=== PATIENT | male | born 1935 | race African-American/Black ===

== ENCOUNTER 2016-07-27 17:34 | Emergency (ER) | payer BC, MEDICARE ==
[2016-07-27] MEDS ORDERED: EPINEPHrine INJ 0.1 MG/ML 10 ML SYG ONE ×2 (17:42→18:03)
[2016-07-27] MEDS ORDERED: ATROPINE 1 MG/10 ML SYG IV ONE (18:06)
[2016-07-27] MEDS ORDERED: DEXTROSE 5% 250ML 250 ML ONE (18:34)
[2016-07-27] MEDS ORDERED: ATROPINE SULFATE 0.5 MG/5 ML SYRINGE IV ONE (18:40)
[2016-07-27] MEDS ORDERED: EPINEPHrine INJ 0.1 MG/ML 10 ML SYG IV ONE ×2 (18:40→19:00)
--- NOTE | 2016-07-27 18:56 | RAD ---
EXAM: Chest,1 View CLINICAL INDICATION: 81-year-old male with bradycardia. TECHNIQUE: Single view, AP portable chest was obtained. COMPARISON: 03/13/2015. 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 Overall widened, however stable superior mediastinum. If there is clinical concern for mediastinal vascular pathology, CTA chest is recommended. Interval development of interstitial and airspace opacification on the RIGHT greater than LEFT finding which may represent edema, hemorrhage or infectious process cannot be excluded. ARDS may be considered in the differential. No gross pneumothoraces. Endotracheal tube terminates approximately 7.9 cm above the level of the liliya at the level of the thoracic inlet. The visualized bones reveal degenerative change. Elevation of the RIGHT hemidiaphragm. Slight blunting of the bilateral costophrenic angles suspected small pleural effusion. Gaseous distention of upper abdominal bowel loops. IMPRESSION: 1. 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 If there is clinical concern for mediastinal vascular pathology, CTA chest is recommended. 2. Interstitial and airspace opacification of the RIGHT greater than LEFT hemithorax suggesting edema, hemorrhage or infectious process. ARDS may be considered in the differential. 3. Interval placement of endotracheal tube terminating approximately 7.9 cm above the level of the liliya at the level of the thoracic inlet. 4. Suspected trace bilateral pleural effusion. Electronically signed by: Mary Chavez MD 07/27/2016 6:55 PM CDT Workstation: [id number]
[2016-07-27] MEDS ORDERED: EPINEPHrine HCL MULTI-DOSE 5 MG in DEXTROSE 5% 250ML 250 ML IV SCH (19:00)
--- NOTE | 2016-07-27 19:29 | ED.PDOC ---
History of Present Illness - General Chief Complaint: Cardiovascular Problem Stated Complaint: decreased LOC,bradycardia Time Seen by Provider: 07/27/16 17:45 Source: EMS notes reviewed, intermediate records Exam Limitations: clinical condition - History of Present Illness Initial Comments: Patient presents from [facility] with bradycardia. Patient is permanently intubated. According to reports from EMS, a tech thought that the patient was unresponsive and tried a few chest compressions. Pulses were difficult to palpate so EMS was called. EMS noted HR in the 30-40s so the patient received atropine 0.5 mg IV x one. Patient presents unresponsive. No other history is available. Timing/Duration: unsure Severity: severe Improving Factors: nothing Worsening Factors: nothing Associated Symptoms: denies symptoms Allergies/Adverse Reactions: Allergies Benzodiazepines Allergy (Verified 12/10/14 19:57) Lorazepam Allergy (Verified 12/10/14 15:16) Home Medications: Ambulatory Orders Acetaminophen [Tylenol] 650 mg PEG Q6H PRN 03/13/15 Ascorbic Acid [Vitamin C] 500 mg PEG BID 03/13/15 Citalopram Hydrobromide [Celexa] 40 mg PEG DAILY 03/13/15 Cyanocobalamin [Vitamin B12] 1,000 mcg PEG DAILY 03/13/15 Doxazosin Mesylate [Doxazosin] 4 mg PEG BEDTIME 03/13/15 Ferrous Sulfate [Ferosul] 7.5 ml PEG DAILY 03/13/15 Folic Acid 1 mg PEG DAILY 03/13/15 Metoprolol Tartrate [Lopressor] 200 mg PO DAILY 03/13/15 Multiple Vitamins W/ Minerals [Multivitamin Adults] 1 tab PEG DAILY 03/13/15 Nutritional Supplements [Vinny] 1 pow PEG DAILY 03/13/15 Phenytoin Chewable Tab [Dilantin Chewable Tab] 200 mg PEG BID 03/13/15 QUEtiapine FUMARATE [SEROquel] 37.5 mg PEG BEDTIME 03/13/15 Simethicone [Gas-X] 160 mg PEG BID 03/13/15 Simvastatin [Zocor] 20 mg PEG BEDTIME 03/13/15 Tramadol HCl [Ultram] 50 mg PEG Q6H PRN 03/13/15 Valproic Acid Syrup [Depakene Syrup] 10 ml PEG DAILY 03/13/15 raNITIdine HCL [Zantac] 150 mg PEG DAILY 03/13/15 Review of Systems - Review of Systems Unable to Obtain Due To: condition, intubated, clinical condition Past Medical History (General) - Patient Medical History Hx Seizures: Yes Hx Stroke: Yes Hx Congestive Heart Failure: No Hx Hypertension: Yes Hx Diabetes: No - Vaccination History Hx Tetanus, Diphtheria Vaccination: - unknown Hx Influenza Vaccination: - UNKNOWN Hx Pneumococcal Vaccination: - UNKNOWN - Social History Hx Tobacco Use: - unknown - Activities of Daily Living Long Term/Assisted Living (if applicable):: [facility] Family Medical History - Family History Father Family History: Unknown Living Status: Physical Exam - Physical Exam General Appearance: Other - GCS 6. Withdraws to pain Ears, Nose, Throat: other - intubated Respiratory: other - distant breath sounds Cardiovascular/Chest: bradycardia, other - weak peripheral pulses but they are palpable Gastrointestinal/Abdominal: normal bowel sounds, non tender, soft Extremity: normal inspection Neurologic: other - GCS 6 Skin Exam: normal color Progress - Progress Progress: 07/27/16 19:32 Atropine 1 mg IV x one and Epinephrine 1 mg IV x one both given without significant increase in heart rate. EKG showed atrial fibrillation with HR of 55. Transcutaneous pacing attempted but we were unable to capture after several attempts. An epinephrine drip was started and titrated to 10 mcg/min. BP was at that point 155/80 and heart rate was 57. Lactic acid 3.9. CK MB Etiology of the patient's shock is unknown. His rectal temperature 90.4. He was started on a bolus of warmed saline and covered with a warm blanket. wbc wnl. Patient transferred to [facility]. Laboratory Tests 07/27/16 07/27/16 07/27/16 18:10 18:10 18:10 WBC 9.4 RBC 3.24 L Hgb 9.4 L Hct 29.3 L MCV 90.4 MCH 29.0 MCHC 32.0 L RDW 15.6 H Plt Count 80 L MPV 10.4 Absolute Neuts (auto) Not Reportable Absolute Lymphs (auto) Not Reportable Absolute Monos (auto) Not Reportable Absolute Eos (auto) Not Reportable Neutrophils % Not Reportable Neutrophils % (Manual) 71.0 Lymphocytes % Not Reportable Lymphocytes % (Manual) 15.0 Monocytes % Not Reportable Monocytes % (Manual) 8.0 Eosinophils % Not Reportable Basophils % Not Reportable Band Neutrophils 6.0 Platelet Estimate Decreased Normal RBC Morphology Normal rbc morph PT INR PTT (SP) Sodium 131 L Potassium 3.9 Chloride 91 L Carbon Dioxide 26 Anion Gap 17.9 BUN 105 H* Creatinine 1.34 H BUN/Creatinine Ratio 78.4 H Random Glucose 147 H Serum Osmolality 298.0 H Lactic Acid Calcium 9.6 Total Bilirubin 0.4 AST 36 ALT 29 Alkaline Phosphatase 244 H Creatine Kinase 89 CK-MB (CK-2) 26.1 H* CK-MB (CK-2) % Not Reportable Troponin I < 0.02 B-Natriuretic Peptide 479.0 H* Serum Total Protein 7.7 Albumin 3.0 L Globulin 4.7 H Albumin/Globulin Ratio 0.6 L 07/27/16 07/27/16 18:10 18:10 WBC RBC Hgb Hct MCV MCH MCHC RDW Plt Count MPV Absolute Neuts (auto) Absolute Lymphs (auto) Absolute Monos (auto) Absolute Eos (auto) Neutrophils % Neutrophils % (Manual) Lymphocytes % Lymphocytes % (Manual) Monocytes % Monocytes % (Manual) Eosinophils % Basophils % Band Neutrophils Platelet Estimate Normal RBC Morphology PT 14.1 H INR 1.250 PTT (SP) 71.8 H* Sodium Potassium Chloride Carbon Dioxide Anion Gap BUN Creatinine BUN/Creatinine Ratio Random Glucose Serum Osmolality Lactic Acid 3.9 H* Calcium Total Bilirubin AST ALT Alkaline Phosphatase Creatine Kinase CK-MB (CK-2) CK-MB (CK-2) % Troponin I B-Natriuretic Peptide Serum Total Protein Albumin Globulin Albumin/Globulin Ratio Departure - Departure Clinical Impression: Shock, Hypothermia, Bradycardia, Hypotension Disposition: Transfer to Hospital Condition: Serious Departure Forms: ED Discharge - Pt. Copy, Patient Portal Self Enrollment Diet: other - NPO Activity: other - as per hospitalist Referrals: HUMBERTO ARELLANO [Primary Care Provider] - 1-2 Weeks Home Medications: Ambulatory Orders Acetaminophen [Tylenol] 650 mg PEG Q6H PRN 03/13/15 Ascorbic Acid [Vitamin C] 500 mg PEG BID 03/13/15 Citalopram Hydrobromide [Celexa] 40 mg PEG DAILY 03/13/15 Cyanocobalamin [Vitamin B12] 1,000 mcg PEG DAILY 03/13/15 Doxazosin Mesylate [Doxazosin] 4 mg PEG BEDTIME 03/13/15 Ferrous Sulfate [Ferosul] 7.5 ml PEG DAILY 03/13/15 Folic Acid 1 mg PEG DAILY 03/13/15 Metoprolol Tartrate [Lopressor] 200 mg PO DAILY 03/13/15 Multiple Vitamins W/ Minerals [Multivitamin Adults] 1 tab PEG DAILY 03/13/15 Nutritional Supplements [Vinny] 1 pow PEG DAILY 03/13/15 Phenytoin Chewable Tab [Dilantin Chewable Tab] 200 mg PEG BID 03/13/15 QUEtiapine FUMARATE [SEROquel] 37.5 mg PEG BEDTIME 03/13/15 Simethicone [Gas-X] 160 mg PEG BID 03/13/15 Simvastatin [Zocor] 20 mg PEG BEDTIME 03/13/15 Tramadol HCl [Ultram] 50 mg PEG Q6H PRN 03/13/15 Valproic Acid Syrup [Depakene Syrup] 10 ml PEG DAILY 03/13/15 raNITIdine HCL [Zantac] 150 mg PEG DAILY 03/13/15
[2016-07-27 19:55] VITALS: O2SAT 99
[2016-07-27 19:56] VITALS: BP 175/87; TEMP 89.5
[2016-07-27] MEDS ORDERED: SODIUM CHLORIDE 0.9% 1000ML 1,000 ML ONE (20:06)
== END 2016-07-27 20:10 | disposition short-term general hospital (02) ==
LOC: ER 17:34
DX: R57.9 Shock, unspecified (principal); T68.XXXA Hypothermia, initial encounter; I95.9 Hypotension, unspecified; R56.9 Unspecified convulsions; I10 Essential (primary) hypertension; Z88.8 Allergy status to other drugs, medicaments and biological substances; Z86.73 Personal history of transient ischemic attack (TIA), and cerebral infarction without residual deficits; X58.XXXA Exposure to other specified factors, initial encounter; Y92.129 Unspecified place in nursing home as the place of occurrence of the external cause
CPT/HCPCS: 36415; 71010; 80053; 82550; 82553; 83605; 83880; 84484; 85025; 85610; 85730; 93005; 94002; 94003; 94770; 96374; 96375; 99285; J7030; J7060

== ENCOUNTER 2016-08-06 13:52 | Emergency (ER) | payer MEDICARE ==
[2016-08-06] MEDS ORDERED: IPRATROPIUM/ALBUTEROL 3 ML VIAL NEB ONE ×2 (14:01→14:02)
[2016-08-06] MEDS ORDERED: NEOMYCIN-BACITRACIN-POLYMYXIN 0.9 GM UD TOP ONE ×2 (14:14→14:15)
--- NOTE | 2016-08-06 14:34 | RAD ---
EXAM DESCRIPTION: Abdomen Series CLINICAL HISTORY: intermittent hypoxia, abd distention COMPARISON: None. FINDINGS: AP supine and upright views of the abdomen show a air-filled mildly dilated loops of small bowel and colon throughout the abdomen. No significant air-fluid levels are seen. No free intraperitoneal air is identified. Surgical skin staple projecting over the right upper quadrant of the abdomen is noted. Single AP portable upright view of the chest shows enlargement of the cardiomediastinal silhouette. There is increased prominence of the pulmonary vascularity compared to previous exam. There remains elevation of the right hemidiaphragm. There is blunting of both costophrenic angles. Tracheostomy tube is seen in place. A right IJ triple lumen central line is seen in place and extends into the left innominate vein with tip overlying the medial aspect of the left clavicle. IMPRESSION: Air-filled mildly dilated loops of bowel throughout the abdomen are more suggestive of ileus rather than partial distal small bowel obstruction. Findings in the chest suggest congestive heart failure with diffuse pulmonary edema and right greater than left pleural effusions. Right IJ triple lumen central line is seen with catheter and tip extending into the expected location of the left innominate vein. Tracheostomy tube is seen in place. Electronically signed by: Bennett Leong MD 08/06/2016 2:33 PM CDT
[2016-08-06] MEDS ORDERED: FUROSEMIDE INJ 40 MG/4 ML VIAL IV ONE (14:49)
[2016-08-06] MEDS ORDERED: POTASSIUM CHLORIDE ELIXIR 20 MEQ/15 ML UD GT ONE (14:58)
[2016-08-06] MEDS ORDERED: MAGNESIUM SULFATE PREMIX 2GM 2 GM in PREMIX BAG 1 BAG IVPB ONE (14:58)
--- NOTE | 2016-08-06 15:52 | ED.PDOC ---
History of Present Illness - General Chief Complaint: Respiratory Problem Time Seen by Provider: 08/06/16 14:00 Source: EMS notes reviewed, correction records Exam Limitations: clinical condition - History of Present Illness Initial Comments: the patientis an 81-year-old -Citizen Of [place] male presenting to the emergency room from a long-term care facility secondary to difficulty with oxygenation. The patient was released from [facility] 6 days ago after being treated for pneumonia and MRSA sepsis. The patient is undergoing IV vancomycin therapy once a day. He had been doing well up until late last night and early this morning when his oxygen saturation started decreasing. He has had significant edema to all of his extremities since his hospital stay. Due to the sepsis and hypothermia he had required a significant amount of IV fluids. The patient has large blisters to the dorsal aspect of his left hand and both feet. The patient also has some sacral breakdown and some scrotal breakdown. Abdomen is moderately distended but decompresses nicely when unplugging the G- tube. unlike his last visit, the patient is alert and awake and fairly interactive. He does appear a little short of breath and is mainly only truly uncomfortable when we suctioned him. The patient's baseline FiO2 is normally around 30%. It is requiring at least 60% to keep his oxygen saturationsadequate here. The patient has decreased breath sounds to bilateral lung basesand scattered rales throughout. Mild wheezes initially but these do clear somewhat with the breathing treatment. The patient was initially found to be mildly hypothermic with a rectal temperature rechecked at 93.8. no hypotension. No tachycardia. No real respiratory distress once he is oxygenating better. No report of fever from the facility. the patient does have significant edema to primarily the uppers extremities but also some to the lower extremities. He has an IJcentral lineplaced on the right. Tracheostomy is in place as is the G-tube. 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 He does always have an elevated d-dimer and BUN. Timing/Duration: 24 hours Severity: moderate Improving Factors: other - suctioning Worsening Factors: nothing Associated Symptoms: cough Allergies/Adverse Reactions: Allergies Benzodiazepines Allergy (Verified 12/10/14 19:57) Lorazepam Allergy (Verified 12/10/14 15:16) Home Medications: Ambulatory Orders Acetaminophen [Tylenol] 650 mg PEG Q6H PRN 03/13/15 Ascorbic Acid [Vitamin C] 500 mg PEG BID 03/13/15 Citalopram Hydrobromide [Celexa] 40 mg PEG DAILY 03/13/15 Cyanocobalamin [Vitamin B12] 1,000 mcg PEG DAILY 03/13/15 Doxazosin Mesylate [Doxazosin] 4 mg PEG BEDTIME 03/13/15 Ferrous Sulfate [Ferosul] 7.5 ml PEG DAILY 03/13/15 Folic Acid 1 mg PEG DAILY 03/13/15 Metoprolol Tartrate [Lopressor] 200 mg PO DAILY 03/13/15 Multiple Vitamins W/ Minerals [Multivitamin Adults] 1 tab PEG DAILY 03/13/15 Nutritional Supplements [Vinny] 1 pow PEG DAILY 03/13/15 Phenytoin Chewable Tab [Dilantin Chewable Tab] 200 mg PEG BID 03/13/15 QUEtiapine FUMARATE [SEROquel] 37.5 mg PEG BEDTIME 03/13/15 Simethicone [Gas-X] 160 mg PEG BID 03/13/15 Simvastatin [Zocor] 20 mg PEG BEDTIME 03/13/15 Tramadol HCl [Ultram] 50 mg PEG Q6H PRN 03/13/15 Valproic Acid Syrup [Depakene Syrup] 10 ml PEG DAILY 03/13/15 raNITIdine HCL [Zantac] 150 mg PEG DAILY 03/13/15 Review of Systems - Review of Systems Review of Systems: 08/06/16 19:27 Limited due to patient's difficulty with communication. Review of systems is fornew symptoms compared to baseline. Constitutional: States: malaise EENTM: States: no symptoms reported Respiratory: States: cough, short of breath, wheezing Cardiology: States: edema Gastrointestinal/Abdominal: States: other - bloating Genitourinary: States: no symptoms reported Musculoskeletal: States: other - chronic changes only Skin: States: see HPI Neurological: States: other - chronic changes only Endocrine: States: no symptoms reported All other Systems: No Change from Baseline Past Medical History (General) - Patient Medical History Hx Seizures: Yes Hx Stroke: Yes Hx Congestive Heart Failure: No Hx Hypertension: Yes Hx Diabetes: No - Vaccination History Hx Tetanus, Diphtheria Vaccination: - unknown Hx Influenza Vaccination: - UNKNOWN Hx Pneumococcal Vaccination: - UNKNOWN - Social History Hx Tobacco Use: - unknown Family Medical History - Family History Father Family History: Unknown Living Status: Physical Exam - Physical Exam General Appearance: Alert, Anxious, No apparent distress Eye Exam: bilateral normal Ears, Nose, Throat: hearing grossly normal, normal ENT inspection, normal pharynx - poor dentition Neck: non-tender, full range of motion - tracheostomy is in place as is the right sided IJ Respiratory: chest non-tender, no accessory muscle use, decreased breath sounds , crackles, rales, wheezing Cardiovascular/Chest: normal peripheral pulses, regular rate, rhythm Peripheral Pulses: radial,right: 2+, radial,left: 2+, dorsalis pedis,right: 2+, dorsalis pedis,left: 2+ Gastrointestinal/Abdominal: non tender, soft - abdomen is distended and tympanic. G-tube is in place. Rectal Exam: other - significant sacral decubitus breakdownalong with some breakdown around the scrotum. Back Exam: no CVA tenderness Extremity: non-tender, normal capillary refill - no evidence of tenderness to palpation of the extremities. , other - the patient has minimal movement of his upper extremities. Almost no movement of the lower extremities. He does have +2 edema to bilateral upper extremities. Neurologic: alert, normal mood/affect - according to the respiratory therapist that knows him Skin Exam: normal color - with the exception of the edema and the blisters that are formed on the dorsal aspects of both feet and the left hand Comments: Vital Signs - 24 hr 08/06/16 08/06/16 08/06/16 13:52 14:10 14:55 Temperature 94.1 F L 94.1 F L Pulse Rate 99 H Pulse Rate [ 100 H 91 H Radial] Respiratory 12 12 12 Rate Respiratory 12 Rate [Volume Control Data] Blood Pressure 143/86 152/74 [Right Arm] O2 Sat by Pulse 95 98 92 L Oximetry 08/06/16 08/06/16 08/06/16 15:42 15:52 16:28 Temperature 94.1 F L 95.8 F L Pulse Rate 99 H Pulse Rate [ 91 H 96 H Radial] Respiratory 12 12 Rate Respiratory 12 Rate [Volume Control Data] Blood Pressure 150/77 166/90 [Right Arm] O2 Sat by Pulse 90 L 98 Oximetry 08/06/16 08/06/16 17:45 18:50 Temperature 95.3 F L 96.2 F L Pulse Rate 99 H Pulse Rate [ 99 H 109 H Radial] Respiratory 12 12 Rate Respiratory Rate [Volume Control Data] Blood Pressure 148/72 181/93 [Right Arm] O2 Sat by Pulse 94 L 100 Oximetry note that the higher blood pressures above tend to be around times that we have suctioned him Progress - Progress Progress: 08/06/16 19:34 the patient is an 81-year-old -Citizen Of [place] male with what appears to be a worsening ventilator associated pneumonia and a CHF exacerbation. He is continuing to receive his vancomycin as appropriate based on cultures from 10 days ago. We are adding meropenem here today. Blood culture has been performed. Additionally the patient appears to have a CHF component to this hypoxia. arterial blood gas correlates well to his pulse oximetry. He has diuresed approximately 1.3 L since arrival after a dose of Lasix here. He does have a mildly elevated blood urea nitrogen level, this however is a chronic finding. The patient is guaiac positive on his stool. He does have some anemia. Hemoglobin levels are consistent with his discharge levels from [facility] one week ago. the patient was moderately hypothermic on arrival. The patient has been warmed externally with his temperature coming up to 96.2 rectally. the patient is being transferred for continued care of above problems. I then informed that the facility that he comes from is unable to run a ventilator patient for any period of time on an FiO2 greater than 40%. He is currently requiring 60% to maintain adequate oxygenation. - Results/Orders Results/Orders: Laboratory Tests 08/06/16 08/06/16 08/06/16 14:20 14:20 14:20 WBC 11.2 H RBC 3.01 L Hgb 8.3 L Hct 25.9 L MCV 85.9 MCH 27.5 MCHC 32.1 L RDW 17.6 H Plt Count 124 L MPV 8.0 Absolute Neuts (auto) 9.10 H Absolute Lymphs (auto) 0.70 L Absolute Monos (auto) 1.10 H Absolute Eos (auto) 0.10 Absolute Basos (auto) 0.10 Neutrophils % 81.4 H Lymphocytes % 6.6 L Monocytes % 10.2 H Eosinophils % 1.2 Basophils % 0.6 PT 15.2 H INR 1.350 PTT (SP) 50.5 H D-Dimer, Quantitative 636 H* pCO2 pO2 HCO3 ABG pH ABG O2 Saturation ABG Base Excess ABG Deoxyhemoglobin Oxyhemoglobin % Carboxyhemoglobin % Methemoglobin % Sat Calc Total Hemoglobin Sodium 144 Potassium 2.9 L Chloride 106 Carbon Dioxide 32 H Anion Gap 8.9 L BUN 45 H Creatinine 0.88 BUN/Creatinine Ratio 51.1 H POC Glucose Random Glucose 157 H Serum Osmolality 301.6 H Lactic Acid Calcium 8.9 Magnesium 1.6 L Total Bilirubin 0.5 AST 38 ALT 30 Alkaline Phosphatase 329 H Creatine Kinase 48 CK-MB (CK-2) 10.6 H* CK-MB (CK-2) % 22.08 H Troponin I 0.02 B-Natriuretic Peptide 764.0 H* Serum Total Protein 7.3 Albumin 2.4 L Globulin 4.9 H Albumin/Globulin Ratio 0.5 L Urine Color Urine Appearance Urine pH Ur Specific [place] Urine Protein Urine Glucose (UA) Urine Ketones Urine Blood Urine Nitrite Urine Bilirubin Urine Urobilinogen Ur Leukocyte Esterase Urine RBC Urine WBC Ur Epithelial Cells Amorphous Sediment Urine Bacteria Stool Occult Blood Vancomycin Trough Phenytoin Valproic Acid 08/06/16 08/06/16 08/06/16 14:20 15:15 15:22 WBC RBC Hgb Hct MCV MCH MCHC RDW Plt Count MPV Absolute Neuts (auto) Absolute Lymphs (auto) Absolute Monos (auto) Absolute Eos (auto) Absolute Basos (auto) Neutrophils % Lymphocytes % Monocytes % Eosinophils % Basophils % PT INR PTT (SP) D-Dimer, Quantitative pCO2 49 H pO2 48 L* HCO3 31.7 ABG pH 7.430 ABG O2 Saturation 83.1 L ABG Base Excess 7.0 ABG Deoxyhemoglobin 16.5 H Oxyhemoglobin % 80.9 L Carboxyhemoglobin % 1.5 Methemoglobin % Sat 1.2 Calc Total Hemoglobin 7.9 L Sodium Potassium Chloride Carbon Dioxide Anion Gap BUN Creatinine BUN/Creatinine Ratio POC Glucose Random Glucose Serum Osmolality Lactic Acid Calcium Magnesium Total Bilirubin AST ALT Alkaline Phosphatase Creatine Kinase CK-MB (CK-2) CK-MB (CK-2) % Troponin I B-Natriuretic Peptide Serum Total Protein Albumin Globulin Albumin/Globulin Ratio Urine Color Urine Appearance Urine pH Ur Specific [place] Urine Protein Urine Glucose (UA) Urine Ketones Urine Blood Urine Nitrite Urine Bilirubin Urine Urobilinogen Ur Leukocyte Esterase Urine RBC Urine WBC Ur Epithelial Cells Amorphous Sediment Urine Bacteria Stool Occult Blood Positive Vancomycin Trough Phenytoin 15.7 Valproic Acid < 0.1 L 08/06/16 08/06/16 08/06/16 16:00 18:16 18:25 WBC RBC Hgb Hct MCV MCH MCHC RDW Plt Count MPV Absolute Neuts (auto) Absolute Lymphs (auto) Absolute Monos (auto) Absolute Eos (auto) Absolute Basos (auto) Neutrophils % Lymphocytes % Monocytes % Eosinophils % Basophils % PT INR PTT (SP) D-Dimer, Quantitative pCO2 pO2 HCO3 ABG pH ABG O2 Saturation ABG Base Excess ABG Deoxyhemoglobin Oxyhemoglobin % Carboxyhemoglobin % Methemoglobin % Sat Calc Total Hemoglobin Sodium Potassium Chloride Carbon Dioxide Anion Gap BUN Creatinine BUN/Creatinine Ratio POC Glucose 116 H Random Glucose Serum Osmolality Lactic Acid Calcium Magnesium Total Bilirubin AST ALT Alkaline Phosphatase Creatine Kinase 56 CK-MB (CK-2) 10.8 H* CK-MB (CK-2) % 19.29 H Troponin I 0.03 B-Natriuretic Peptide Serum Total Protein Albumin Globulin Albumin/Globulin Ratio Urine Color Yellow Urine Appearance Clear Urine pH 5.0 Ur Specific [place] 1.010 Urine Protein Trace Urine Glucose (UA) Negative Urine Ketones Negative Urine Blood Small H Urine Nitrite Negative Urine Bilirubin Negative Urine Urobilinogen 0.2 Ur Leukocyte Esterase Negative Urine RBC 0-1 Urine WBC 0-1 Ur Epithelial Cells 0-1 Amorphous Sediment 2+ Urine Bacteria 0 Stool Occult Blood Vancomycin Trough Phenytoin Valproic Acid 08/06/16 08/06/16 18:25 18:25 WBC RBC Hgb Hct MCV MCH MCHC RDW Plt Count MPV Absolute Neuts (auto) Absolute Lymphs (auto) Absolute Monos (auto) Absolute Eos (auto) Absolute Basos (auto) Neutrophils % Lymphocytes % Monocytes % Eosinophils % Basophils % PT INR PTT (SP) D-Dimer, Quantitative pCO2 pO2 HCO3 ABG pH ABG O2 Saturation ABG Base Excess ABG Deoxyhemoglobin Oxyhemoglobin % Carboxyhemoglobin % Methemoglobin % Sat Calc Total Hemoglobin Sodium Potassium Chloride Carbon Dioxide Anion Gap BUN Creatinine BUN/Creatinine Ratio POC Glucose Random Glucose Serum Osmolality Lactic Acid 0.8 Calcium Magnesium Total Bilirubin AST ALT Alkaline Phosphatase Creatine Kinase CK-MB (CK-2) CK-MB (CK-2) % Troponin I B-Natriuretic Peptide Serum Total Protein Albumin Globulin Albumin/Globulin Ratio Urine Color Urine Appearance Urine pH Ur Specific [place] Urine Protein Urine Glucose (UA) Urine Ketones Urine Blood Urine Nitrite Urine Bilirubin Urine Urobilinogen Ur Leukocyte Esterase Urine RBC Urine WBC Ur Epithelial Cells Amorphous Sediment Urine Bacteria Stool Occult Blood Vancomycin Trough 18.4 H Phenytoin Valproic Acid chest x-ray is consistent with pneumonia and CHF. cT angiogram of the chest shows no definitive evidenceof pulmonary embolus. The patient does have significant right lower lobe collapse along with partial left lower lobe collapse and consolidation. The patient has some consolidation in the right upper lobe and right middle lobes as well. CT scan is consistent with progression of pneumonia and CHF exacerbation. he does have pleural effusions fairly small on the left moderate-sized on the right. Departure - Departure Clinical Impression: Pneumonia, ventilator associated, CHF exacerbation Disposition: Transfer to Hospital Referrals: HUMBERTO ARELLANO [Primary Care Provider] - 1-2 Weeks Home Medications: Ambulatory Orders Acetaminophen [Tylenol] 650 mg PEG Q6H PRN 03/13/15 Ascorbic Acid [Vitamin C] 500 mg PEG BID 03/13/15 Citalopram Hydrobromide [Celexa] 40 mg PEG DAILY 03/13/15 Cyanocobalamin [Vitamin B12] 1,000 mcg PEG DAILY 03/13/15 Doxazosin Mesylate [Doxazosin] 4 mg PEG BEDTIME 03/13/15 Ferrous Sulfate [Ferosul] 7.5 ml PEG DAILY 03/13/15 Folic Acid 1 mg PEG DAILY 03/13/15 Metoprolol Tartrate [Lopressor] 200 mg PO DAILY 03/13/15 Multiple Vitamins W/ Minerals [Multivitamin Adults] 1 tab PEG DAILY 03/13/15 Nutritional Supplements [Vinny] 1 pow PEG DAILY 03/13/15 Phenytoin Chewable Tab [Dilantin Chewable Tab] 200 mg PEG BID 03/13/15 QUEtiapine FUMARATE [SEROquel] 37.5 mg PEG BEDTIME 03/13/15 Simethicone [Gas-X] 160 mg PEG BID 03/13/15 Simvastatin [Zocor] 20 mg PEG BEDTIME 03/13/15 Tramadol HCl [Ultram] 50 mg PEG Q6H PRN 03/13/15 Valproic Acid Syrup [Depakene Syrup] 10 ml PEG DAILY 03/13/15 raNITIdine HCL [Zantac] 150 mg PEG DAILY 03/13/15 Transfer to Outside Facility - Transfer Information Accepting Provider:: dr donahue Accepting Facility: [facility] Reason for Transfer: ICU
[2016-08-06] MEDS ORDERED: FLUCONAZOLE 150 MG TAB GT ONE (17:47)
[2016-08-06] MEDS ORDERED: MEROPENEM 500 MG in SODIUM CHL 0.9% 50ML MIN-BAG+ 50 ML IVPB ONE (17:47)
[2016-08-06] MEDS ORDERED: SODIUM CHL 0.9% 50ML MIN-BAG+ 50 ML IVPB ONE (18:11)
[2016-08-06] MEDS ORDERED: MAGNESIUM SULFATE PREMIX 2GM 50 ML IVPB ONE (18:11)
[2016-08-06] MEDS ORDERED: POTASSIUM CHLORIDE ELIXIR 20 MEQ/15 ML UD ONE (18:11)
[2016-08-06] MEDS ORDERED: MEROPENEM 500 MG VIAL IVPB ONE (18:11)
[2016-08-06] MEDS ORDERED: FUROSEMIDE INJ 40 MG/4 ML VIAL ONE (18:12)
--- NOTE | 2016-08-06 18:45 | CT ---
EXAM DESCRIPTION: CTA Chest CLINICAL HISTORY: 81 years Male, pe protocol, hypoxia, chf, vent pt COMPARISON: Chest x-ray dated 07/27/2016. TECHNIQUE: 0.625 mm axial images through the chest were performed after the administration of intravenous contrast utilizing a CTA protocol. MIPS were performed. This exam was performed according to our departmental dose-optimization program which includes use of Automated Exposure Control, adjustment of the mA and/or kV according to patient size and/or use of iterative reconstruction technique. FINDINGS: No acute pulmonary embolus is identified. Subsegmental branches in the lower lobes are degraded by breathing motion artifact and suboptimally evaluated. Normal caliber aorta without dissection. No pericardial effusion. Vascular calcifications are present with aortic and moderate coronary artery involvement. Moderate bilateral pleural effusions. Extensive consolidation involves both lung with involvement of the upper lobes the RIGHT middle lobe and lingula. The heart is enlarged. Consolidation is also present LEFT lower lobe is partially collapsed. The RIGHT lower lobe is completely collapsed. The central airway is patent. The tracheostomy tube terminates 7 cm above the liliya. A hypoattenuating nodule in the RIGHT lobe of the thyroid gland measures 1.6 cm. Mediastinal lymphadenopathy is multifocal and prominent. A AP window lymph node on the LEFT on image 156 measures 1.1 cm in short axis no acute fracture is seen. IMPRESSION: No acute pulmonary embolus. Suboptimal evaluation of subsegmental branches in the lower lobes secondary to breathing motion artifact. Normal caliber aorta without dissection. Coronary artery disease. Cardiomegaly with bilateral pleural effusions and extensive bilateral pulmonary consolidation which suggests pulmonary edema in the setting. Underlying pneumonia and diffuse alveolar damage could also have this appearance. Likely reactive lymphadenopathy The RIGHT lower lobe is collapsed. The LEFT lower lobe is partially collapsed. 1.6 cm nodule in the RIGHT lobe of the thyroid gland. Follow-up nonemergent ultrasound is recommended size of this lesion and patient age. Electronically signed by: Amy Meredith MD 08/06/2016 6:44 PM CDT
[2016-08-06] MEDS ORDERED: SODIUM CHLORIDE 0.9% 10 ML VIAL ONE (19:28)
[2016-08-06 22:34] VITALS: BP 140/97; TEMP 97.8; O2SAT 99
== END 2016-08-06 21:30 | disposition short-term general hospital (02) ==
LOC: ER 13:52
DX: J95.851 Ventilator associated pneumonia (principal); I50.9 Heart failure, unspecified; I10 Essential (primary) hypertension; Z86.73 Personal history of transient ischemic attack (TIA), and cerebral infarction without residual deficits; R56.9 Unspecified convulsions; Z79.899 Other long term (current) drug therapy; Z86.718 Personal history of other venous thrombosis and embolism
CPT/HCPCS: 36415; 36416; 36600; 71275; 74020; 80053; 80164; 80185; 80202; 81001; 82270; 82550; 82553; 82803; 82805; 82948; 83605; 83735; 83880; 84484; 85025; 85379; 85610; 85730; 87040; 93005; 94002; 94640; J1940; J2185; J3475; J7050; J7620

== ENCOUNTER 2016-09-25 07:36 | Emergency (ER) | payer MEDICARE, MEDICAID ==
--- NOTE | 2016-09-25 07:58 | RAD ---
EXAM DESCRIPTION: Chest,1 View CLINICAL HISTORY: ams, blood in trach, altered. COMPARISON: July 27, 2016 IMPRESSION: Single AP portable upright view of the chest shows interval increased opacification of the right lung primarily involving the right upper lobe with mild air bronchograms seen. Somewhat cut off appearance to the right main stem bronchus seen. These findings could indicate atelectasis and/or some degree of pneumonia versus aspiration given the air bronchograms. Consider possible mucous plugging in the right mainstem bronchus versus less likely neoplastic process. The patient has a CT scan from July 29, 2016 without evidence of mass in the tracheobronchial tree. Tracheostomy appears in good positioning. Tortuosity the thoracic aorta is seen. Left lung is mildly hyperinflated without acute infiltrate. Right hemidiaphragm is elevated and indistinct raising suspicion for possible small pleural effusion. Electronically signed by: Bennett Leong MD 09/25/2016 7:57 AM CDT
[2016-09-25] MEDS ORDERED: IPRATROPIUM/ALBUTEROL 3 ML VIAL NEB ONE (08:11)
[2016-09-25] MEDS ORDERED: SODIUM CHLORIDE 0.9% 1000ML 1,000 ML IVS ONE ×2 (08:11→09:39)
--- NOTE | 2016-09-25 08:20 | ED.PDOC ---
History of Present Illness - General Chief Complaint: Respiratory Problem Stated Complaint: "blood in trach" Time Seen by Provider: 09/25/16 07:39 Source: patient Exam Limitations: no limitations - History of Present Illness Initial Comments: pt presents with ems from [facility] fro progressive deterioration. blood from trach this am, cuff was deflated upon arrival here. pt is altered, normally mouths words and interacts, is altered and obtunded here today. nonpurposful movement of limbs. severely hypothermic at 88F rectally upon arrival with mild bradycardia. warming started. suspect this is at least partially due to exposure as we have seen him here with hypothermia before. apparently had labs 1 week ago showing a bun of 120 and was to have labs rechecked today but facility was unable to get blood so in light of that and obtunded mental status the pt was sent here. O2 sats 90% on current vent setting adn bp tolerable with sbp avg 110, hr avg 60. several blood blisters and areas of necrosis to toes. heels with pressure sores. sacral area stg 1 only which is improved. rrales and wheezes bilaterally with decreased bs to right . does have aknown long standing hx of gi bleed in the past and has had dvt and pe in the pst as well. Blood pressures have been a little bit lower since the patient has been allowed to relax. Systolic blood pressures have ranged from 80-100. Mean arterial pressures have been from 55-70. Heart rates have ranged from 50-70. Mental status is not improved. The patient's core temperature has raised about a degree and a half over the last hour and a half. The patient is starting his second liter of warmed IV fluids. Family, Simon Lacey, who is the medical decision maker, was contacted by me. I have discussed the patient's condition including his multiple serious acute problems with this family member. I have discussed the fact that he has a very high mortality with these current conditions. He obviously additionally does have a very poor quality of life. Family member has declined comfort care and wants," everything done". This conversation occurred at approximately 9:10 this morning. Timing/Duration: unsure Severity: severe Improving Factors: nothing Worsening Factors: nothing Allergies/Adverse Reactions: Allergies Benzodiazepines Allergy (Verified 12/10/14 19:57) Lorazepam Allergy (Verified 11/01/15 15:16) Home Medications: Ambulatory Orders Acetaminophen [Tylenol] 650 mg PEG Q6H PRN 03/13/15 Ascorbic Acid [Vitamin C] 500 mg PEG BID 03/13/15 Citalopram Hydrobromide [Celexa] 40 mg PEG DAILY 03/13/15 Cyanocobalamin [Vitamin B12] 1,000 mcg PEG DAILY 03/13/15 Doxazosin Mesylate [Doxazosin] 4 mg PEG BEDTIME 03/13/15 Ferrous Sulfate [Ferosul] 7.5 ml PEG DAILY 03/13/15 Folic Acid 1 mg PEG DAILY 03/13/15 Metoprolol Tartrate [Lopressor] 200 mg PO DAILY 03/13/15 Multiple Vitamins W/ Minerals [Multivitamin Adults] 1 tab PEG DAILY 03/13/15 Nutritional Supplements [Vinny] 1 pow PEG DAILY 03/13/15 Phenytoin Chewable Tab [Dilantin Chewable Tab] 200 mg PEG BID 03/13/15 QUEtiapine FUMARATE [SEROquel] 37.5 mg PEG BEDTIME 03/13/15 Simethicone [Gas-X] 160 mg PEG BID 03/13/15 Simvastatin [Zocor] 20 mg PEG BEDTIME 03/13/15 Tramadol HCl [Ultram] 50 mg PEG Q6H PRN 03/13/15 Valproic Acid Syrup [Depakene Syrup] 10 ml PEG DAILY 03/13/15 raNITIdine HCL [Zantac] 150 mg PEG DAILY 03/13/15 Review of Systems - Review of Systems Review of Systems: 09/25/16 08:20 unable to communicate currently. 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 Surgical History: other - Vaccination History Hx Tetanus, Diphtheria Vaccination: - unknown Hx Influenza Vaccination: - UNKNOWN Hx Pneumococcal Vaccination: - UNKNOWN - Social History Hx Tobacco Use: No Hx Alcohol Use: No Hx Substance Use: No Hx Substance Use Treatment: No Hx Depression: Yes - Activities of Daily Living [facility] Family Medical History - Family History Father Family History: Unknown Living Status: Physical Exam - Physical Exam General Appearance: Lethargic, Ill Appearing, Other - on vent with trach now inflated, gtube in place, perry in place, obtunded adn delirious. no purposeful actions. no attempted interaction. responds to pain only. Eye Exam: bilateral normal Ears, Nose, Throat: normal pharynx Neck: non-tender, supple, other - trach in place Respiratory: no accessory muscle use, other - see hpi, scarring from previous injury to chest wall. Cardiovascular/Chest: regular rate, rhythm, no edema Peripheral Pulses: radial,right: 2+, radial,left: 2+, dorsalis pedis,right: 1+, dorsalis pedis,left: 1+ Gastrointestinal/Abdominal: non tender, soft, other - gtube in place Rectal Exam: other - stool present, early repeat skin breakdown over sacrum Back Exam: normal inspection, no vertebral tenderness - as best can be assessed Extremity: other - significant wasting, nonpurposeful mvts, blisters adn heel ulcers. Skin Exam: other - see above, pallor Comments: Vital Signs - 24 hr 09/25/16 09/25/16 09/25/16 07:46 07:54 08:20 Temperature 88.3 F L 87.6 F L Pulse Rate [ 64 57 L Left Radial] Respiratory 22 22 22 Rate Blood Pressure 132/72 93/56 [Right Arm] O2 Sat by Pulse 98 95 Oximetry Progress - Progress Progress: 09/25/16 09:43 the patient is an 81-year-old -[place] male presented to the emergency room secondary to a progressive deterioration apparently over the last few weeks. The patient is in acute renal failure with a significant uremia present with a BUN of 150. He is significantly hypothermic and is receiving warm IV fluids as well as a air warm blanket. His temperature is improving somewhat. the patient is also septic and hypotensive. Blood pressures are failing to improve with IV fluids so the patient is going to be started on dopamine, given his mild bradycardia as well. The patient has a large right-sided pneumonia and a possible bronchial plugging. He has been started on a dose of meropenem. He will need to see pulmonologyfor likely direct treatment of the bronchial plug. The patient is also being transferred for nephrology evaluation. His urinalysis is not clean but that is no surprise given that he has a long- standing indwelling Perry catheter. The patient is obtunded likely both due to hypothermia and the renal failure. He does have an elevated CK-MB but that is a long-standing finding with him. he has a history of a known slow GI bleed but there has been no clinical evidence of any jean bleeding recently. The patient also has significant anemia and would likely benefit over the next few days with a unit or 2 of packed red blood cells. He has worsening thrombocytopenia. AGAIN THIS PATIENT'S CONDITION HAS BEEN DISCUSSED WITH HIS MEDICAL DECISION-MAKER WHO HAS DECIDED FOR AGGRESSIVE CARE. tHE PATIENT WILL BE TRANSFERRED FOR HIGHER LEVEL OF CARE. 09/25/16 09:50 55 minutes of critical care time spent on this patient in not otherwise billable procedures. - Results/Orders Results/Orders: Laboratory Tests 09/25/16 09/25/16 09/25/16 08:00 08:00 08:00 WBC 5.3 RBC 2.45 L Hgb 7.0 L* Hct 21.2 L MCV 86.8 MCH 28.5 MCHC 32.7 L RDW 18.5 H Plt Count 28 L* MPV 8.8 Absolute Neuts (auto) 4.70 Absolute Lymphs (auto) 0.40 L Absolute Monos (auto) 0.10 L Absolute Eos (auto) 0.00 Absolute Basos (auto) 0.10 Neutrophils % 89.1 H Lymphocytes % 7.5 L Monocytes % 1.6 L Eosinophils % 0.3 L Basophils % 1.5 PT 14.4 H INR 1.280 PTT (SP) 70.5 H* Sodium 125 L Potassium 4.2 Chloride 82 L Carbon Dioxide 33 H Anion Gap 14.2 BUN 149 H* Creatinine 1.60 H BUN/Creatinine Ratio 93.1 H Random Glucose 170 H Serum Osmolality 304.2 H Calcium 9.9 Magnesium 2.6 H Total Bilirubin 0.5 AST 30 ALT 26 Alkaline Phosphatase 301 H Creatine Kinase 67 CK-MB (CK-2) 19.5 H* CK-MB (CK-2) % Not Reportable Troponin I < 0.02 B-Natriuretic Peptide 81.3 Serum Total Protein 8.6 H Albumin 2.7 L Globulin 5.9 H Albumin/Globulin Ratio 0.5 L Urine Color Urine Appearance Urine pH Ur Specific [place] Urine Protein Urine Glucose (UA) Urine Ketones Urine Blood Urine Nitrite Urine Bilirubin Urine Urobilinogen Ur Leukocyte Esterase Urine RBC Urine WBC Ur Epithelial Cells Urine Bacteria Phenytoin Valproic Acid 09/25/16 09/25/16 09/25/16 08:00 08:00 08:23 WBC RBC Hgb Hct MCV MCH MCHC RDW Plt Count MPV Absolute Neuts (auto) Absolute Lymphs (auto) Absolute Monos (auto) Absolute Eos (auto) Absolute Basos (auto) Neutrophils % Lymphocytes % Monocytes % Eosinophils % Basophils % PT INR PTT (SP) Sodium Potassium Chloride Carbon Dioxide Anion Gap BUN Creatinine BUN/Creatinine Ratio Random Glucose Serum Osmolality Calcium Magnesium Total Bilirubin AST ALT Alkaline Phosphatase Creatine Kinase CK-MB (CK-2) CK-MB (CK-2) % Troponin I B-Natriuretic Peptide Serum Total Protein Albumin Globulin Albumin/Globulin Ratio Urine Color Yellow Urine Appearance Sl cloudy Urine pH 5.5 Ur Specific [place] <= 1.005 Urine Protein 100 H Urine Glucose (UA) Negative Urine Ketones Negative Urine Blood Large H Urine Nitrite Negative Urine Bilirubin Negative Urine Urobilinogen 0.2 Ur Leukocyte Esterase Small H Urine RBC 20-30 H Urine WBC 10-20 H Ur Epithelial Cells 3-5 Urine Bacteria 4+ H Phenytoin 4.8 L Valproic Acid 11.0 L chest x-ray shows increasing consolidation of the right lung field.ild hyperinflation of the left lung field. CT scan of the chest shows complete consolidation of the rightremaining lung. There is some inferior atelectasis. There is a mild to moderate size right pleural effusion. blood and sputum cultures have been performed. EKG shows mild sinus bradycardia at a rate of 55 bpm. There is criteria for LVH. There is very mild widening of the QRS complex. There is mild J-point elevation in V3 and possibly V2. These changes are consistent with previous EKGs. No definitive acute ST segment changes concerning for immediate ischemia. There is prolongation of QT interval. Departure - Departure Clinical Impression: Thrombocytopenia, Metabolic encephalopathy Hypothermia Qualifiers: Encounter type: initial encounter Qualified Code(s): T68.XXXA - Hypothermia, initial encounter Sepsis Qualifiers: Sepsis type: sepsis due to unspecified organism Qualified Code(s): A41.9 - Sepsis, unspecified organism Acute renal failure Qualifiers: Acute renal failure type: unspecified Qualified Code(s): N17.9 - Acute kidney failure, unspecified Anemia Qualifiers: Anemia type: iron deficiency Iron deficiency anemia type: chronic blood loss Qualified Code(s): D50.0 - Iron deficiency anemia secondary to blood loss ( chronic) Disposition: Transfer to Hospital Home Medications: Ambulatory Orders Acetaminophen [Tylenol] 650 mg PEG Q6H PRN 03/13/15 Ascorbic Acid [Vitamin C] 500 mg PEG BID 03/13/15 Citalopram Hydrobromide [Celexa] 40 mg PEG DAILY 03/13/15 Cyanocobalamin [Vitamin B12] 1,000 mcg PEG DAILY 03/13/15 Doxazosin Mesylate [Doxazosin] 4 mg PEG BEDTIME 03/13/15 Ferrous Sulfate [Ferosul] 7.5 ml PEG DAILY 03/13/15 Folic Acid 1 mg PEG DAILY 03/13/15 Metoprolol Tartrate [Lopressor] 200 mg PO DAILY 03/13/15 Multiple Vitamins W/ Minerals [Multivitamin Adults] 1 tab PEG DAILY 03/13/15 Nutritional Supplements [Vinny] 1 pow PEG DAILY 03/13/15 Phenytoin Chewable Tab [Dilantin Chewable Tab] 200 mg PEG BID 03/13/15 QUEtiapine FUMARATE [SEROquel] 37.5 mg PEG BEDTIME 03/13/15 Simethicone [Gas-X] 160 mg PEG BID 03/13/15 Simvastatin [Zocor] 20 mg PEG BEDTIME 03/13/15 Tramadol HCl [Ultram] 50 mg PEG Q6H PRN 03/13/15 Valproic Acid Syrup [Depakene Syrup] 10 ml PEG DAILY 03/13/15 raNITIdine HCL [Zantac] 150 mg PEG DAILY 03/13/15
[2016-09-25] MEDS ORDERED: methylPREDNISolone SODIUM SUC 40 MG/ML VIAL IV ONE (08:27)
--- NOTE | 2016-09-25 08:55 | CT ---
EXAM DESCRIPTION: Chest w/o Contrast CLINICAL HISTORY: abn cxr, hypothermia, vent COMPARISON: August 06, 2016 TECHNIQUE: Chest CT was performed without IV contrast. This exam was performed according to our departmental dose-optimization program, which includes automated exposure control, adjustment of the mA and/or kV according to patient size and/or use of iterative reconstruction technique. FINDINGS: A tracheostomy tube remains in place without apparent complication. Evaluation of vascular structures is limited by lack of IV contrast. Coronary artery calcifications are noted, but there is no thoracic aortic aneurysm. Sensitivity for detection of adenopathy is also limited by lack of IV contrast. There are a few slightly enlarged paratracheal and AP window lymph nodes, probably stable. Mild rightward mediastinal shift is not significantly changed from the prior and suggests some degree of right-sided atelectasis. No pericardial effusion. Smooth luminal narrowing involving the right mainstem bronchus is new from the prior exam and likely related to bronchial secretions or mucous plugging. There is a small to moderate size right-sided pleural effusion with extensive airspace consolidation involving the majority of the right lung likely representing a combination of atelectasis, pneumonia and/or edema. There is a trace amount of left pleural fluid with minimal consolidation in the left lung also likely representing a combination of atelectasis, pneumonia or edema. The right lung appears slightly worse from the prior study, but the left lung is significantly improved. Subtle emphysematous changes are noted in the left lung apex. There are 2 round low density lesions superior pole right kidney, incompletely characterized but likely representing cysts. Visualized portions of the upper abdomen are otherwise unremarkable. Again seen is a 1.3 cm low-density right thyroid nodule, stable. No further follow-up is recommended for this finding. No concerning bone lesion. IMPRESSION: Extensive right-sided and minimal left-sided airspace consolidation, worse in the right side and improved on the left side from July,. Differential considerations include pneumonia and/or edema. Small to moderate right-sided and tiny left-sided pleural effusions, smaller on the left side. Smooth luminal narrowing involving the right mainstem bronchus, new from the prior exam. This likely represents bronchial secretions or mucous plugging. Bronchoscopy may be helpful. Coronary artery disease and emphysema. Electronically signed by: Luis Huntley MD 09/25/2016 8:54 AM CDT Workstation: [email or web address]
[2016-09-25] MEDS ORDERED: MEROPENEM 500 MG in SODIUM CHL 0.9% 50ML MIN-BAG+ 50 ML IVPB ONE (09:04)
[2016-09-25] MEDS ORDERED: MEROPENEM 500 MG VIAL IVPB ONE (09:13)
[2016-09-25] MEDS ORDERED: SODIUM CHL 0.9% 50ML MIN-BAG+ 50 ML IVPB ONE (09:14)
[2016-09-25] MEDS ORDERED: DOPamine PREMIX 250 ML IVPB ONE (09:45)
[2016-09-25] MEDS ORDERED: DOPamine PREMIX 400 MG in PREMIX BAG 1 BAG IVPB SCH (10:00)
[2016-09-25 10:23] VITALS: BP 99/56; TEMP 90.4; O2SAT 97
== END 2016-09-25 10:24 | disposition short-term general hospital (02) ==
LOC: ER 07:36
DX: A41.9 Sepsis, unspecified organism (principal); D50.0 Iron deficiency anemia secondary to blood loss (chronic); T68.XXXA Hypothermia, initial encounter; N17.9 Acute kidney failure, unspecified; J98.09 Other diseases of bronchus, not elsewhere classified; G93.41 Metabolic encephalopathy; D69.6 Thrombocytopenia, unspecified; J18.9 Pneumonia, unspecified organism; R00.1 Bradycardia, unspecified; I10 Essential (primary) hypertension; K21.9 Gastro-esophageal reflux disease without esophagitis; Z86.14 Personal history of Methicillin resistant Staphylococcus aureus infection; Z93.1 Gastrostomy status; Z86.718 Personal history of other venous thrombosis and embolism; Z79.899 Other long term (current) drug therapy; Z99.11 Dependence on respirator [ventilator] status; W93.8XXA Exposure to other excessive cold of man-made origin, initial encounter
CPT/HCPCS: 36415; 71010; 71250; 80053; 80164; 80177; 80185; 81001; 82550; 82553; 83735; 83880; 84484; 85025; 85610; 85730; 87040; 87086; 87088; 87186; 93005; 94002; J1030; J1265; J2185; J7030; J7050; J7620